=== PATIENT | male | born 1985 | race Two or more races ===

== ENCOUNTER 2021-08-24 15:56 | Emergency (ER) | payer SELFPAY ==
[~2021-08-24] VITALS: Ht 182.9 cm; Wt 100.0 kg
[2021-08-24 16:00] VITALS: BP 132/81
[2021-08-24] MEDS ORDERED: FAMO20TA5 PO (16:27)
[2021-08-24] MEDS ORDERED: DIPH25CA58 PO (16:27)
[2021-08-24] MEDS ORDERED: PRED50TA PO (16:27)
--- NOTE | 2021-08-24 16:28 | PHYS DOC ---
Past Medical History Past Medical History: No Pertinent History Past Surgical History: No Surgical History Alcohol Use: Occasionally Drug Use: Marijuana General Adult EDM: Chief Complaint: ALLERGIC REACTION HPI: HPI: Patient is a 36 year old male who presents to the ED today complaining of a rash that began on after taking Ampitrexyl for overall health, he states he has had nasal congestion since Wednesday. Denies any fever. Denies any cough. Denies any chest pain, shortness of breath, throat or tongue swelling. Review of Systems: Review of Systems: Constitutional: Denies fever or chills. [] Eyes: Denies change in visual acuity. [] HENT: Reports nasal congestion Respiratory: Denies cough or shortness of breath. [] Cardiovascular: Denies chest pain or edema. [] GI: Denies abdominal pain, nausea, vomiting, bloody stools or diarrhea. [] : Denies dysuria. [] Musculoskeletal: Denies back pain or joint pain. [] Integument: Reports rash Neurologic: Denies headache, focal weakness or sensory changes. Psychiatric: Denies depression or anxiety. [] Heart Score: C/O Chest Pain: N/A Risk Factors: Risk Factors: DM, Current or recent (<one month) smoker, HTN, HLP, family history of CAD, obesity. Risk Scores: Score 0 - 3: 2.5% MACE over next 6 weeks - Discharge Home Score 4 - 6: 20.3% MACE over next 6 weeks - Admit for Clinical Observation Score 7 - 10: 72.7% MACE over next 6 weeks - Early Invasive Strategies Allergies: Allergies: Allergies Coded Allergies Type Severity Reaction Last Updated Verified No Known Drug Allergies 08/01/13 No Physical Exam: PE: Constitutional: Well developed, well nourished, no acute distress, non-toxic appearance. [] HENT: Normocephalic, atraumatic, bilateral external ears normal, oropharynx mo ist, no oral exudates, nose normal. [] Eyes: PERRLA, EOMI, conjunctiva normal, no discharge. [] Neck: Normal range of motion, no tenderness, supple, no stridor. [] Cardiovascular:Heart rate regular rhythm, no murmur [] Lungs & Thorax: Bilateral breath sounds clear to auscultation [] Abdomen: Bowel sounds normal, soft, no tenderness, no masses, no pulsatile masses. [] Skin: Small amount of scattered erythematous papular rash on bilateral upper extremities, posterior back, abdomen. Patient reports the rashes on the face Back: No tenderness, no CVA tenderness. [] Extremities: No tenderness, no cyanosis, no clubbing, ROM intact, no edema. [] Neurologic: Alert and oriented X 3, normal motor function, normal sensory function, no focal deficits noted. [] Psychologic: Affect normal, judgement normal, mood normal. [] Current Patient Data: Vital Signs: Vital Signs Date Time Temp Pulse Resp B/P (MAP) Pulse Ox O2 Delivery O2 Flow Rate FiO2 08/24/21 16:00 98.6 67 18 132/81 (98) 99 Room Air 98.6 EKG: EKG: [] Radiology/Procedures: Radiology/Procedures: [] Course & Med Decision Making: Course & Med Decision Making Pertinent Labs and Imaging studies reviewed. (See chart for details) This a 36-year-old male patient who presents to the ED today with a rash that began on after taking Ampitrexyl for overall health, he had congestion since Wednesday. He has no anaphylactic reaction symptoms. He was discharged on Benadryl, prednisone and Pepcid. Instructed to stop taking, Ampitrexyl follow-up with PCP in the course of this week, provided return precautions. Steffanie Disclaimer: Steffanie Disclaimer: This electronic medical record was generated, in whole or in part, using a voice recognition dictation system. Departure Departure Impression: Primary Impression: Drug allergy Additional Impression: URI (upper respiratory infection) Qualified Codes: J06.9 - Acute upper respiratory infection, unspecified Disposition: HOME / SELF CARE / HOMELESS Condition: STABLE Referrals: NON,STAFF (PCP) follow up in one week with your doctor Patient Instructions: Drug Allergy, Upper Respiratory Infection, Adult, [id number] Additional Instructions: You were evaluated in the emergency room for an allergic reaction to Ampitrexyl, please stop taking this medicine right away. Take Benadryl, prednisone and Pepcid as prescribed. Follow-up with your primary care doctor in the course of this week, come back to the ED at any point symptoms worsen Scripts Diphenhydramine Hcl (BENADRYL) 25 Mg Capsule 1 CAP PO Q6-8HRS PRN for RASH, #30 CAP 0 Refills Prov: ROB ESTRELLA APRN 08/24/21 Famotidine (FAMOTIDINE) 20 Mg Tablet 20 MG PO DAILY, #7 TAB Prov: ROB ESTRELLA APRN 08/24/21 Prednisone (PREDNISONE) 50 Mg Tablet 1 TAB PO DAILY, #5 TAB Prov: ROB ESTRELLA APRN 08/24/21 ROB ESTRELLA APRN August 24, 2021 16:28
== END 2021-08-24 16:40 | disposition home or self-care (01) ==
LOC: ER 15:56
DX: J06.9 Acute upper respiratory infection, unspecified (principal); R21 Rash and other nonspecific skin eruption; T50.995A Adverse effect of other drugs, medicaments and biological substances, initial encounter; Y92.89 Other specified places as the place of occurrence of the external cause
CPT/HCPCS: 99283